=== PATIENT | male | born 1945 | race Caucasian/White ===

== ENCOUNTER 2017-02-17 09:56 | Emergency (ER) | payer MEDICARE, MEDICAID, OTHER ==
[~2017-02-17] VITALS: Ht 177.8 cm; Wt 79.5 kg
[~2017-02-17 09:56] MED LIST: ALBU18HF INH; ATOR80TA77 PO; CRB200T PO; HYG25 PO
[2017-02-17 10:02] VITALS: BP 144/90; PULSE 65; RESP 14; O2SAT 100
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
[2017-02-17 13:38] VITALS: BP 142/75; PULSE 56; RESP 16; O2SAT 100
[2017-02-17 13:40] VITALS: BP 142/75; PULSE 56; RESP 16; O2SAT 100
== END 2017-02-17 13:41 | disposition home or self-care (01) ==
LOC: SED 13:30
DX: S42.124A Nondisplaced fracture of acromial process, right shoulder, initial encounter for closed fracture (principal); Y04.0XXA Assault by unarmed brawl or fight, initial encounter; Y93.9 Activity, unspecified; Y99.9 Unspecified external cause status; I10 Essential (primary) hypertension; E78.5 Hyperlipidemia, unspecified; Z79.899 Other long term (current) drug therapy; Z91.040 Latex allergy status